=== PATIENT | female | born 1975 | race Caucasian/White ===

== ENCOUNTER → 2018-04-29 | Outpatient (CLI) | payer OTHER ==
--- NOTE | 2018-04-29 09:02 | RAD ---
DATE: 04/29/2018 EXAM: DIGITAL SCREEN BILAT W/CAD HISTORY: Routine screening COMPARISON: Baseline study This study was interpreted with the benefit of Computerized Aided Detection (CAD). The breast parenchyma is heterogeneously dense, which could reduce sensitivity of mammography. Breast parenchyma level C. FINDINGS: The fibroglandular tissues are heterogeneously dense. No breast mass or architectural distortion is evident. No suspicious microcalcifications are seen. IMPRESSION: There is no mammographic evidence of malignancy in either breast. BI-RADS CATEGORY: 1 NEGATIVE RECOMMENDED FOLLOW-UP: 12M 12 MONTH FOLLOW-UP PQRS compliance statement: Patient information was entered into a reminder system with a target due date for the next mammogram. Mammography is a sensitive method for finding small breast cancers, but it does not detect them all and is not a substitute for careful clinical examination. A negative mammogram does not negate a clinically suspicious finding and should not result in delay in biopsying a clinically suspicious abnormality. "Our facility is accredited by the [employer] Mammography Program."
== END | disposition home or self-care (01) ==
LOC: MAMMO 07:42
PROVIDERS: ATTEND Physician Assistant
DX: Z12.31 Encounter for screening mammogram for malignant neoplasm of breast (principal)
CPT/HCPCS: 77067